=== PATIENT | male | born 1965 | race Caucasian/White ===

== ENCOUNTER 2017-08-08 17:29 | Emergency (ER) | payer OTHER ==
[2017-08-08 18:13] LABS: Basophils % (Auto) 0.3 % (0.0-1.8); Eosinophils % (Auto) 0.3 % (0.0-4.3); Hematocrit 44.8 % (35.5-45.6); Hemoglobin 14.4 gm/dl (11.8-15.2); Lymphocytes # (Auto) 1.5 K/mm3 (1.2-5.4); Lymphocytes % (Auto) 13.7 % (13.4-35.0); Mean Corpuscular HGB Conc 32 % (32-34); Mean Corpuscular Hemoglobin 30 pg (28-32); Mean Corpuscular Volume 93 fl (84-94); Monocytes # (Auto) 1.1 K/mm3 (0.0-0.8); Monocytes % (Auto) 9.7 % (0.0-7.3); Platelet Count 282 K/mm3 (140-440); Red Blood Count 4.81 M/mm3 (3.65-5.03)
[2017-08-08 18:25] LABS: BUN/Creatinine Ratio 8; Blood Urea Nitrogen 8 mg/dL (9-20); Calcium 8.9 mg/dL (8.4-10.2); Hemolysis Index 5
[2017-08-08 18:26] LABS: Bacteria,Urine 1+ /HPF (Negative); Bilirubin,Urine NEG (Negative); Blood,Urine NEG (Negative); Color,Urine Yellow (Yellow); Mucus,Urine FEW /HPF; Protein,Urine <15 mg/dL mg/dL (Negative); Urobilinogen,Urine < 2.0 mg/dL (<2.0); WBC,Urine < 1.0 /HPF (0.0-6.0)
[2017-08-09 01:19] VITALS: BP 132/87
--- NOTE | 2017-08-09 01:25 | Emergency Department Report ---
- General Chief complaint: Hyperglycemia Stated complaint: LAURA/URI Time Seen by Provider: 08/09/17 01:11 Source: patient Mode of arrival: Ambulatory Limitations: No Limitations - History of Present Illness Initial comments: 51 yo male with hx of IDDM presents with facial abscess at the nasal region, beginning inside nose. Pus drainage. He has had prior staph infection in the same area. Also has had infection previously in left axilla. He states that he has poorly controlled diabetes. 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 MD complaint: rash, abscess/boil -: Gradual, days(s) (2-3) Location: face Severity: moderate Quality: aching Consistency: constant Associated symptoms: malaise - Related Data Previous Rx's Medication Instructions Recorded Last Taken Type Cephalexin [Keflex] 500 mg PO Q6HR #40 capsule 08/09/17 Unknown Rx HYDROcodone/APAP 5-325 [[place] 1 each PO Q6HR PRN #15 tablet 08/09/17 Unknown Rx 5/325] Sulfamethoxazole/Trimethoprim 1 each PO BID 10 Days #20 tablet 08/09/17 Unknown Rx [Bactrim DS TAB] Allergies Allergy/AdvReac Type Severity Reaction Status Date / Time No Known Allergies Allergy Verified 08/08/17 17:49 Abscess Boil HPI - HPI Chief Complaint: Hyperglycemia Stated Complaint: LAURA/URI Time Seen by Provider: 08/09/17 01:11 Home Medications: Previous Rx's Medication Instructions Recorded Last Taken Type Cephalexin [Keflex] 500 mg PO Q6HR #40 capsule 08/09/17 Unknown Rx HYDROcodone/APAP 5-325 [[place] 1 each PO Q6HR PRN #15 tablet 08/09/17 Unknown Rx 5/325] Sulfamethoxazole/Trimethoprim 1 each PO BID 10 Days #20 tablet 08/09/17 Unknown Rx [Bactrim DS TAB] Allergies/Adverse Reactions: Allergies Allergy/AdvReac Type Severity Reaction Status Date / Time No Known Allergies Allergy Verified 08/08/17 17:49 ED Review of Systems ROS: Stated complaint: LAURA/URI Other details as noted in HPI Comment: All other systems reviewed and negative Constitutional: malaise. denies: fever ED Past Medical Hx - Past Medical History Hx Hypertension: Yes Hx Diabetes: Yes - Surgical History Past Surgical History?: Yes Additional Surgical History: back - Social History Smoking Status: Never Smoker Substance Use Type: None - Medications Home Medications: Home Medications Medication Instructions Recorded Confirmed Last Taken Type Cephalexin [Keflex] 500 mg PO Q6HR #40 capsule 08/09/17 Unknown Rx HYDROcodone/APAP 5-325 [[place] 1 each PO Q6HR PRN #15 tablet 08/09/17 Unknown Rx 5/325] Sulfamethoxazole/Trimethoprim 1 each PO BID 10 Days #20 tablet 08/09/17 Unknown Rx [Bactrim DS TAB] ED Physical Exam - General Limitations: No Limitations General appearance: alert, in no apparent distress - Head Head exam: Present: atraumatic, normocephalic - Eye Eye exam: Present: normal appearance - ENT ENT exam: Present: mucous membranes moist, other (distal nose erythematous with multiple pustules with active drainage at the right medial nostril and skin above the right upper lip) - Neck Neck exam: Present: normal inspection - Respiratory Respiratory exam: Present: normal lung sounds bilaterally. Absent: respiratory distress, wheezes, rales, rhonchi - Cardiovascular Cardiovascular Exam: Present: regular rate, normal rhythm, normal heart sounds. Absent: systolic murmur, diastolic murmur, rubs, gallop - GI/Abdominal GI/Abdominal exam: Present: soft, normal bowel sounds. Absent: distended, tenderness, guarding, rebound - Rectal Rectal exam: Present: deferred - Extremities Exam Extremities exam: Present: normal inspection - Back Exam Back exam: Present: normal inspection - Neurological Exam Neurological exam: Present: alert, oriented X3 - Psychiatric Psychiatric exam: Present: normal affect, normal mood - Skin Skin exam: Present: warm, dry, intact, normal color. Absent: rash ED Course Vital Signs 08/08/17 08/09/17 17:49 01:18 Temperature 97.9 F Pulse Rate 107 H 103 H Respiratory 16 18 Rate Blood Pressure 143/68 Blood Pressure 132/87 [Left] O2 Sat by Pulse 97 100 Oximetry ED Medical Decision Making - Lab Data Result diagrams: 08/08/17 18:02 08/08/17 18:02 Laboratory Results - last 24 hr 08/08/17 08/08/17 08/08/17 17:58 18:02 18:02 WBC 11.1 H RBC 4.81 Hgb 14.4 Hct 44.8 MCV 93 MCH 30 MCHC 32 RDW 13.0 L Plt Count 282 Lymph % (Auto) 13.7 Ma[place]ick % (Auto) 9.7 H Eos % (Auto) 0.3 Baso % (Auto) 0.3 Lymph # 1.5 Ma[place]ick # 1.1 H Eos # 0.0 Baso # 0.0 Seg Neutrophils % 76.0 H Seg Neutrophils # 8.5 H VBG pH Sodium 134 L Potassium 4.5 Chloride 94.8 L Carbon Dioxide 27 Anion Gap 17 BUN 8 L Creatinine 1.0 Estimated GFR > 60 BUN/Creatinine Ratio 8 Glucose 376 H POC Glucose 349 H Calcium 8.9 Urine Color Urine Turbidity Urine pH Ur Specific Percival Urine Protein Urine Glucose (UA) Urine Ketones Urine Blood Urine Nitrite Urine Bilirubin Urine Urobilinogen Ur Leukocyte Esterase Urine WBC (Auto) Urine RBC (Auto) U Epithel Cells (Auto) Urine Bacteria (Auto) Urine Mucus 08/08/17 08/08/17 08/09/17 18:02 18:08 01:16 WBC RBC Hgb Hct MCV MCH MCHC RDW Plt Count Lymph % (Auto) Maverick % (Auto) Eos % (Auto) Baso % (Auto) Lymph # Maverick # Eos # Baso # Seg Neutrophils % Seg Neutrophils # VBG pH 7.337 Sodium Potassium Chloride Carbon Dioxide Anion Gap BUN Creatinine Estimated GFR BUN/Creatinine Ratio Glucose POC Glucose 234 H Calcium Urine Color Yellow Urine Turbidity Clear Urine pH 6.0 Ur Specific Percival 1.035 H Urine Protein <15 mg/dl Urine Glucose (UA) >=500 Urine Ketones Neg Urine Blood Neg Urine Nitrite Neg Urine Bilirubin Neg Urine Urobilinogen < 2.0 Ur Leukocyte Esterase Neg Urine WBC (Auto) < 1.0 Urine RBC (Auto) 2.0 U Epithel Cells (Auto) 1.0 Urine Bacteria (Auto) 1+ Urine Mucus Few Vital Signs - 24 hr 08/08/17 08/09/17 17:49 01:18 Temperature 97.9 F Pulse Rate 107 H 103 H Respiratory 16 18 Rate Blood Pressure 143/68 Blood Pressure 132/87 [Left] O2 Sat by Pulse 97 100 Oximetry - Medical Decision Making 1. Facial abscess cellulitis: Prescription for Bactrim and Keflex. Patient is concerned about the pain. He received a prescription for [place] 2. Hyperglycemia poorly controlled diabetes no evidence of diabetic ketoacidosis. Critical care attestation.: If time is entered above; I have spent that time in minutes in the direct care of this critically ill patient, excluding procedure time. ED Disposition Clinical Impression: Cellulitis and abscess of face, Hyperglycemia due to type 2 diabetes mellitus Disposition: DC-01 TO HOME OR SELFCARE Is pt being admited?: No Does the pt Need Aspirin: No Condition: Stable Instructions: Cellulitis (ED), Abscess (ED), Meal Planning with Diabetes Exchanges (DC) Prescriptions: Cephalexin [Keflex] 500 mg PO Q6HR #40 capsule HYDROcodone/APAP 5-325 [[place] 5/325] 1 each PO Q6HR PRN #15 tablet PRN Reason: Pain Sulfamethoxazole/Trimethoprim [Bactrim DS TAB] 1 each PO BID 10 Days #20 tablet Referrals: [facility] [Outside] - 3-5 Days Forms: Work/School Release Form(ED) Time of Disposition: 01:28
[2017-08-09] MEDS ORDERED: NORCO 5/325 PO ONE (01:35)
== END 2017-08-09 01:42 | disposition home or self-care (01) ==
LOC: ED 17:29
DX: L02.01 Cutaneous abscess of face (principal); L03.211 Cellulitis of face; E11.65 Type 2 diabetes mellitus with hyperglycemia; I10 Essential (primary) hypertension
CPT/HCPCS: 36415; 80048; 81001; 82805; 82962; 85025; 99284